=== PATIENT | female | born 1975 | race Two or more races ===

== ENCOUNTER 2020-04-12 08:30 | Day surgery (SDC) | payer MEDICAID ==
[2020-03-27 10:55] LABS: ANION GAP 7 mmol/L (5-15); BLOOD UREA NITROGEN 12 mg/dL (7-18); CALCIUM 9.1 MG/DL (8.5-10.1); CARBON DIOXIDE 31 MMOL/L (21-32); CHLORIDE 105 MMOL/L (98-107); CREATININE 0.6 MG/DL (0.55-1.30); POTASSIUM 4.5 MMOL/L (3.5-5.1); SODIUM 143 MMOL/L (136-145)
[2020-03-27 10:57] LABS: BASOPHILS % (AUTO) 0.8 % (0.0-2.0); EOSINOPHILS % (AUTO) 8.9 % (0.0-3.0); HEMATOCRIT 38.3 % (37.0-47.0); HEMOGLOBIN 13.5 G/DL (12.0-16.0); LYMPHOCYTES % (AUTO) 29.6 % (20.0-45.0); MEAN CORPUSCULAR VOLUME 84 FL (80-99); MONOCYTES % (AUTO) 5.5 % (1.0-10.0); NEUTROPHILS % (AUTO) 55.3 % (45.0-75.0); PLATELET COUNT 242 K/UL (150-450); RED BLOOD COUNT 4.54 M/UL (4.20-5.40); RED CELL DISTRIBUTION WIDTH 11.7 % (11.6-14.8); WHITE BLOOD COUNT 6.8 K/UL (4.8-10.8)
[2020-03-27 11:30] LABS: APPEARANCE,URINE CLEAR; BILIRUBIN, URINE NEGATIVE (NEGATIVE); COLOR,URINE PALE YELLOW; GLUCOSE, URINE (UA) NEGATIVE (NEGATIVE); KETONES,URINE NEGATIVE (NEGATIVE); LEUKOCYTE ESTERASE ,URINE 2+ (NEGATIVE); NITRITE,URINE NEGATIVE (NEGATIVE); PH,URINE 5 (4.5-8.0); PROTEIN,URINE NEGATIVE (NEGATIVE); UROBILINOGEN,URINE NORMAL MG/DL (0.0-1.0)
--- NOTE | 2020-03-27 14:37 | Diagnostic Imaging Report ---
Indication: Cough Technique: One view of the chest Comparison: none Findings: Lungs and pleural spaces are clear. Heart size is normal. Impression: No acute process
--- NOTE | 2020-04-11 11:44 | Pre-op HX & Phy Repo 2 SIG ---
DATE OF ADMISSION: 04/12/2020 SCHEDULED FOR OUTPATIENT SURGERY: 04/12/2020. HISTORY OF PRESENT ILLNESS: The patient is a 44-year-old female in overall good health with ductal carcinoma in situ of the left breast scheduled to undergo left breast partial mastectomy with preoperative stereotactic needle localization. The patient presented with left breast pain. Imaging studies included mammogram revealed a 5 mm cluster of microcalcifications in the left breast upper outer quadrant 2 o'clock 4 cm from the nipple at mid depth. Core biopsy revealed ductal carcinoma in situ. The patient was seen by Oncology, who recommended proceeding with surgical resection of the area. PAST MEDICAL HISTORY/MEDICATIONS: For cholesterol. ALLERGIES: None. OPERATIONS: Left breast biopsy 25 years ago. REVIEW OF SYSTEMS: 2, para 2. Last menstrual period was in 2014. PHYSICAL EXAMINATION: VITAL SIGNS: The patient is 5 feet 1 inches, approximately 155 pounds. Vital signs within normal limits. HEENT: Within normal limits. LUNGS: Clear. HEART: Regular rhythm. BREASTS: Medium in size and ptotic. There is no palpable abnormality in either breasts. There is no axillary, supraclavicular lymphadenopathy. ABDOMEN: Soft. PELVIC: Per primary care. RECTAL: Per primary care. EXTREMITIES: Without edema. NEUROLOGIC: Physiologic. IMPRESSION: Ductal carcinoma in situ, left breast. PLAN: Left breast partial mastectomy with preoperative stereotactic needle localization. I had a full discussion with the patient regarding the nature of her condition, the nature of the surgery, indications, alternatives, options, and risks including bleeding, infection, need for additional procedures of treatment based on final pathology, scarring, deformity of breast or nipple, etc. All questions have been answered. She understands and agrees to proceed. Koffi Lucia M.D. DR: WYATT JOB#: [id number] CC:
[~2020-04-12] VITALS: Ht 154.9 cm; Wt 70.8 kg
[2020-04-12] VITALS (9 sets, daily range): BP systolic 95–110; BP diastolic 56–75
[~2020-04-12 08:30] MED LIST: MULTIVITAMINS1 EAC2 ORAL; ZOCOR40 MG ORAL
[2020-04-12] MEDS ORDERED: Bacitracin 50000 Units Vial ONE (09:30)
[2020-04-12] MEDS ORDERED: NeoSporin Gu Irrig 1ml Amp IRRIG ONE (09:30)
--- NOTE | 2020-04-12 09:34 | Pre-Procedure Note/Attestation ---
Pre-Procedure Note/Attestation Complete Prior to Procedure Planned Procedure: left Procedure Narrative: left breast partial mastectomy with pre-operative needle localization Indications for Procedure Pre-Operative Diagnosis: DCIS left breast Attestation I attest that I discussed the nature of the procedure; its benefits; risks and complications; and alternatives (and the risks and benefits of such alternatives ), prior to the procedure, with the patient (or the patient's legal retail sales representative). I attest that, if there was a reasonable possibility of needing a blood transfusion, the patient (or the patient's legal retail sales representative) was given the [facility] standardized written summary, pursuant to the Wyatt Reynold Blood Safety Act ([place] Health and Safety Code # 1645, as amended). I attest that I re-evaluated the patient just prior to the surgery and that there has been no change in the patient's H&P, except as documented below: none Koffi Lucia MD April 12, 2020 09:34
[2020-04-12] MEDS ORDERED: fentaNYL 100 mcg/2 mL IV ONE (09:42)
[2020-04-12] MEDS ORDERED: Lidocaine 1% MPF 10mg/ml 5ml ONE (09:42)
[2020-04-12] MEDS ORDERED: Ketorolac 30mg Inj ONE (09:42)
[2020-04-12] MEDS ORDERED: Midazolam 2mg/2ml Inj ONE (09:42)
[2020-04-12] MEDS ORDERED: LR 1000ml ONE (10:00)
[2020-04-12] MEDS ORDERED: Sterile Water Irrig 1000ml IRRIG ONE (10:00)
[2020-04-12] MEDS ORDERED: NS Irrig 1000ml ONE (10:00)
[2020-04-12] MEDS ORDERED: LR 1000ml 1,000 ML IVLG SCH (10:31)
--- NOTE | 2020-04-12 10:31 | Anethesia Preoperative Eval ---
Anesthesia Pre-op PMH/ROS General Date of Evaluation: April 12, 2020 Time of Evaluation: 09:40 Anesthesiologist: Frank ASA Score: ASA 2 Mallampati Score Class I : Soft palate, uvula, fauces, pillars visible Class II: Soft palate, uvula, fauces visible Class III: Soft palate, base of uvula visible Class IV: Only hard plate visible Mallampati Classification: Class II Surgeon: Khari Diagnosis: L breast CA Surgical Procedure: Mastectomy Anesthesia History: none Family History: no anesthesia problems Allergies: Coded Allergies: No Known Allergies (Unverified , 04/12/20) Medications: see eMAR Patient NPO?: Yes Past Medical History Cardiovascular: Denies: HTN, CAD, [place], valve dz, arrhythmia, other Pulmonary: Denies: asthma, COPD, CARLOS A, other Gastrointestinal/Genitourinary: Reports: GERD; Denies: CRI, ESRD, other Neurologic/Psychiatric: Reports: depression/anxiety; Denies: dementia, CVA, TIA, other Endocrine: Denies: DM, hypothyroidism, steroids, other HEENT: Denies: cataract (L), cataract (R), glaucoma, MOAPA (L), MOAPA (R), other Hematology/Immune: Denies: anemia, DVT, bleeding disorder, other Musculoskeletal/Integumentary: Denies: OA, RA, DJD, DDD, edema, other Other: other - overweight PMH Narrative: as above PSxH Narrative: L breast excisional Bx. Anesthesia Pre-op Phys. Exam Physician Exam Last Vital Signs Date Time Temp Pulse Resp B/P (MAP) Pulse Ox O2 Delivery O2 Flow Rate FiO2 04/12/20 09:04 97.2 61 16 106/69 (81) 98 04/12/20 09:01 Room Air Constitutional: NAD Neurologic: CN 2-12 intact Cardiovascular: RRR, no M/R/G Respiratory: CTA Gastrointestinal: S/NT/ND Airway Exam Mallampati Score: Class II MO: full Neck: flexible ROM: full Teeth: intact Dentures: no upper, no lower Anesthesia Pre-op A/P Labs see chart Studies Pre-op Studies: EKG - NSR Risk Assessment & Plan Assessment: ASA 2 Plan: GA with LMA Status Change Before Surgery: No Pre-Antibiotics Drug: Ancef 1gr Given Within 1 Hr of Incision: Yes Time Given: 10:08 Roel Marie MD April 12, 2020 10:31
[2020-04-12] MEDS ORDERED: DiphenhydrAMINE 50mg/ml Inj IVP PRN (10:45)
[2020-04-12] MEDS ORDERED: Meperidine 25mg/0.5ml Inj (FOR RIGORS ONLY) IV PRN (10:45)
[2020-04-12] MEDS ORDERED: Ketorolac 30mg Inj IV PRN (10:45)
[2020-04-12] MEDS ORDERED: Metoclopramide 10mg/2ml Inj IVP PRN (10:45)
--- NOTE | 2020-04-12 10:52 | Brief Operative Note ---
Immediate Post Operative Note Operative Note Pre-op Diagnosis: DCIS left breast Procedure: left breast partial mastectomy with pre-operative needle localization Post-op Diagnosis: same Post-op Diagnosis: same as pre-op Findings: consistent w/pre-op dx studies Surgeon: tash Anesthesiologist: christiano Anesthesia: general Specimen: yes - left breast tissue DCIS Complications: none Condition: stable Fluids: see anesthesia record Estimated Blood Loss: minimal Drains: none Implant(s) used?: No Koffi Lucia MD April 12, 2020 10:52
[2020-04-12] MEDS ORDERED: HYDROmorphone 1mg/ml Carpuject SUBQ PRN (11:00)
[2020-04-12] MEDS ORDERED: HYDROcodone/Acetamin 5/325 tab ORAL PRN (11:00)
[2020-04-12] MEDS ORDERED: Tylenol #3 tab (300mg/30mg) ORAL PRN (11:00)
--- NOTE | 2020-04-12 11:03 | Immediate Post-Op Evaluation ---
Immediate Post-Op Evalulation Immediate Post-Op Evalulation Procedure: L breast partial mastectomy Date of Evaluation: April 12, 2020 Time of Evaluation: 11:02 IV Fluids: 600 Blood Products: none Estimated Blood Loss: min Urinary Output: none Blood Pressure Systolic: 108 Blood Pressure Diastolic: 56 Pulse Rate: 74 Respiratory Rate: 18 O2 Sat by Pulse Oximetry: 98 Temperature (Fahrenheit): 97.6 Pain Score (1-10): 1 Nausea: No Vomiting: No Complications none Patient Status: reacts, patent, none Hydration Status: adequate Roel Marie MD April 12, 2020 11:03
[2020-04-12] MEDS ORDERED: D5 1/2NS 1,000 ML IV SCH (15:00)
--- NOTE | 2020-04-12 16:45 | Operative Note - Dictated ---
DATE OF OPERATION: 04/12/2020 SURGEON: Koffi Lucia MD. TROLLEY COLLECTOR: None. ANESTHESIOLOGIST: Roel Marie MD. TYPE OF ANESTHESIA: General. PREOPERATIVE DIAGNOSIS: Ductal carcinoma in situ, left breast. POSTOPERATIVE DIAGNOSIS: Ductal carcinoma in situ, left breast. OPERATION PERFORMED: Left breast partial mastectomy with preoperative needle localization. PROCEDURE IN DETAIL: The patient was taken to the operating room and under general anesthesia with sequential compression device stockings in place, she was prepped and draped in usual fashion. The lesion was located in the upper outer quadrant of the left breast. A curvilinear incision was made, needle localization wire and flaps dissected with cautery. The wire was brought through into the field. A partial mastectomy was performed using the cautery for hemostasis down to the chest wall incorporating entire wire and hook although the clip could not be seen from the biopsy. The specimen was oriented with sutures placed anterior, medial, and superior. Specimen radiography confirmed the appropriate sector removed. The field was irrigated and hemostasis secured. Incision was closed with interrupted 3-0 Vicryl deep dermal subcutaneous sutures followed by continuous 4-0 Monocryl subcuticular suture. Mastisol and half-inch Steri-Strips were applied followed by dry sterile dressing. Final sponge and needle counts were correct. The patient tolerated the procedure well and left the operating room in good condition. Koffi Lucia M.D. DR: Karuna JOB#: [id number] CC:
[2020-04-13 07:28] VITALS: BP 124/78
--- NOTE | 2020-04-13 07:28 | 48 Hour Post Anesthesia Eval ---
Post Anesthesia Evaluation Procedure: L breast partial mastectomy Date of Evaluation: April 12, 2020 Time of Evaluation: 12:10 Blood Pressure Systolic: 124 0: 78 Pulse Rate: 68 Respiratory Rate: 20 Temperature (Fahrenheit): 97.6 O2 Sat by Pulse Oximetry: 98 Airway: patent Nausea: No Vomiting: No Pain Intensity: 2 Hydration Status: adequate Cardiopulmonary Status: stable Mental Status/LOC: patient returned to baseline Follow-up Care/Observations: n/a Post-Anesthesia Complications: none Follow-up care needed: ready to discharge Roel Marie MD April 13, 2020 07:28
== END 2020-04-12 13:40 | disposition home or self-care (01) ==
LOC: SUR 08:30
DX: D05.12 Intraductal carcinoma in situ of left breast (principal); F32.9 Major depressive disorder, single episode, unspecified; F41.9 Anxiety disorder, unspecified; E66.3 Overweight; Z68.29 Body mass index [BMI] 29.0-29.9, adult
CPT/HCPCS: 19301; 36415; 71046; 80048; 81001; 85025; 85610; 85730; 93005; 94003; J0690; J1885; J2250; J2405; J2704; J3010; J7120; Z7512; 94150